=== PATIENT | female | born 1990 | race Caucasian/White ===

== ENCOUNTER → 2020-06-08 | Outpatient (CLI) | payer BC ==
[~2020-06-08] MED LIST: CEPHALEXIN500 M1 PO; NORCO 325 MG-7.1 TAB PO; PROZAC 20MG20 MG PO; SYNTHROID0.05 MG/TA PO
== END ==
LOC: ZCOL.LAB 16:52
DX: Z20.828 Contact with and (suspected) exposure to other viral communicable diseases (principal)

== ENCOUNTER → 2021-12-16 | Outpatient (CLI) | payer BC | LOC: DIA.ED 07:55 | DX: O24.419 Gestational diabetes mellitus in pregnancy, unspecified control (principal) | CPT/HCPCS: G0108 ==

== ENCOUNTER → 2022-01-10 | Outpatient (CLI) | payer BC | LOC: DIA.ED 07:06 | DX: O24.419 Gestational diabetes mellitus in pregnancy, unspecified control (principal) | CPT/HCPCS: G0108 ==

== ENCOUNTER 2022-02-22 05:29 | Inpatient (IN) | payer BC ==
[~2022-02-22] VITALS: Ht 152.4 cm; Wt 58.2 kg
[2022-02-22] VITALS (27 sets, daily range): BP systolic 107–157; BP diastolic 55–85; PULSE 89–129; TEMP 98.4–99.1
[2022-02-22 06:37] LABS: BASO % 0.3 % (0.0-2.0); EOS % 0.3 % (0.0-4.0); GRAN # 5.8 K/mm3 (1.4-6.5); GRAN % 63.8 % (42.2-75.2); HEMATOCRIT 38.6 % (37.0-47.0); HEMOGLOBIN 13.4 g/dl (12.5-16.0); LYMPH # 2.3 K/mm3 (1.2-3.4); LYMPH % 25.1 % (20.0-51.0); MEAN CELL VOLUME 90 fl (80.0-100.0); MEAN CORPUSCULAR HEMOGLOBIN 31 pg (27-31); MEAN CORPUSCULAR HGB CONC 35 g/dl (33.0-37.0); MEAN PLATELET VOLUME 11.5 fl (7.4-10.4); MONO # 0.9 K/mm3 (0.1-0.6); MONO % 9.4 % (1.7-9.3); PLATELET COUNT 139 K/mm3 (130-400); RED BLOOD COUNT 4.31 M/mm3 (4.10-5.30); REDCELL DISTRIBUTION WIDTH-CV 13.4 % (11.5-14.5)
--- NOTE | 2022-02-22 06:43 | NUR ---
0643-BETH Quintero to patient room for requested epidural. Megan sat up on side of bed for placement. Procedure reviewed with patient by PAPER BUNDLER. 0649-Epidural dosed by BETH Quintero patient tolerated procedure well. Repositioned LL, safety reviewed. 0740-Damon to DD, Clear yellow urine return. Katie care provided. SVE 9-/100/-1. Dr. Leung to room to see patient. No new orders. Repositioned RL with PB.
--- NOTE | 2022-02-22 08:12 | NUR ---
0812-Dr. Leung on unit. Reviews strip. Orders to labor down at this time and call with questions or concerns.
--- NOTE | 2022-02-22 10:30 | NUR ---
1030-SVE by Dr. Leung, complete +2 station. Orders to set up for delivery. 1038-Patient begins pushing with doctor at bedside. Moves vertex well. 1046-Spontaneous delivery of head attended by Dr. Leung immediately followed by body. Viable male infant cord clamped x2 by MD and cut by father of baby. Infant to mothers abdomen. Care of assumed by ROCIO Holbrook Apgars 8//9. 1050-Spontaneous delivery of intact placenta by MD. Fundal massage firm. Lochia WNL. EBL 200ml. Pitocin bolus per protocol and MD orders. Repair of 2nd degree perineal lac by MD, tram care provided. Updated on plan of care and safety.
[2022-02-23 00:30] VITALS: BP 109/59; PULSE 88; TEMP 97.8
--- NOTE | 2022-02-23 09:11 | NUR ---
Initial visit; Parents thanked for offering congratulations and God's blessings for the of their son and for commenting on the perfect name they chose for him. thanked family for choosing [facility].
[2022-02-23] MEDS ORDERED: IBU800 M1 PO (09:15)
[2022-02-23 09:25] VITALS: BP 105/58; PULSE 93; TEMP 98
[2022-02-23 19:00] VITALS: BP 119/71; PULSE 94; TEMP 97.7
[2022-02-24 09:29] VITALS: BP 108/65; PULSE 90; TEMP 98.1
== END 2022-02-24 11:45 | disposition home or self-care (01) | DRG 807 ==
LOC: LDRO 05:29 → LDR 06:00 → OB 06:00
PROVIDERS: ADMIT Obstetrics & Gynecology
PROC: 10E0XZZ Delivery of Products of Conception, External Approach (ICD-10-PCS; principal; 2022-02-22)
PROC: 0KQM0ZZ Repair Perineum Muscle, Open Approach (ICD-10-PCS; 2022-02-22)
DX: O24.420 Gestational diabetes mellitus in childbirth, diet controlled (principal); Z37.0 Single live birth; O99.284 Endocrine, nutritional and metabolic diseases complicating childbirth; E03.9 Hypothyroidism, unspecified; O70.1 Second degree perineal laceration during delivery; Z3A.38 38 weeks gestation of pregnancy; Z86.16 Personal history of COVID-19
CPT/HCPCS: J2590; J7120

== ENCOUNTER → 2022-03-15 | Outpatient (CLI) | payer BC ==
[~2022-03-15] MED LIST changes: +IBU800 M1 PO
--- NOTE | 2022-03-15 15:26 | NUR ---
Pt, Evette Hudson, presents to walk-in clinic with 3+ week old baby boy, Jason Hudson, with c/o significant nipple pain. Also of note Jason has a severe diaper rash. Jason was born on [birth year] and weighed 6#11.2oz (3040 gms). Pt states Jason was seen by Dr. Mckeon on 03/11/22 and weighed 7.16# (7#2.4oz). Today Jason weighs 7# 7.5oz. Pt has been using diaper rash ointment at every diaper change but does not see improvement. The rash is bright red and he has skin breakdown on both sides of his "butt crack". Pt is advised to get OTC antifungal cream such as lotrimin or monistat and use 3-4 times daily. Continue diaper rash ointment at other changes. LC notes pt's nipples do not have breakdown but are also bright pink. Pt's description of pain is consistent with a yeast/thrush infection. Pt also has an area on lateral aspect of the right breast that is very tender, warm and gets more sore when the breast is awad of milk. There is not really redness or streaking but the area is about the size of the pt's hand. Pt denies fever or malaise. Report of the nipple and breast pain reported to Dr. Arce's nurse, Kenisha. A prescription of Mcbride's Nipple Cream will be sent to a pharmacy and an appointment for breast evaluation is scheduled for tomorrow morning. coaches pt on off-center latch to get a full latch and pt states on the left side it is more comfortable. On the right breast there is a spot of soreness that lines up with the tongue so she is advised on football hold to change where the tongue grasps the breast. This helps but is not painfree. After nursing Jason had a gain of 38 gms, less than expected but he had a "snack" about an hour prior to coming into clinic, and his weight gain is WNL. Handouts provided with re: home care management of nipple yeast/thrush. Advised on leaving the bra open as possible at home and allow air exposure to Jason's bottom a few times a day. POC: Treatment for yeast/thrush as above, appt. as scheduled. F/U: As needed by phone or clinic with this LC, as scheduled with health care providers. Questions invited and answered.
== END ==
LOC: LAC 13:58
DX: Z39.1 Encounter for care and examination of lactating mother (principal)

== ENCOUNTER 2022-03-19 08:12 | Emergency (ER) | payer BC ==
[~2022-03-19] VITALS: Ht 152.4 cm; Wt 49.5 kg
[2022-03-19 08:38] VITALS: TEMP 98.3
[2022-03-19 09:29] VITALS: BP 121/71; PULSE 80
== END 2022-03-19 09:30 | disposition home or self-care (01) ==
LOC: COL.ER 08:12
DX: N64.4 Mastodynia (principal); N64.59 Other signs and symptoms in breast

== ENCOUNTER → 2022-04-11 | Outpatient (CLI) | payer BC ==
--- NOTE | 2022-04-11 15:06 | NUR ---
PT, Evette Hudson, presents for follow up and evaluation of sore nipples. She was last seen on 03/15/22 for sore nipples and has undergone therapy for mastitis and nipple thrush. She has been evaluated and treated by [facility]. Pt states despite treatment she still has burning and pain to her nipples and areola. They still appear pink despite treatments of fluconazole, Mcbride's nipple cream, vinegar rinses, leaving open to air, warm compresses before and after feeding/pumping and breast shells. Two blebs are noted on the right side and three on the left. Today Evette has a 21mm breast shield to be evaluated with, after pumping a few minutes it appears she may benefit from going to the next smaller size. Pt will order these. Pt willing to try Silverettes for nipple pain, and switching to nystatin nipple cream rather than Mcbride's. She will alternate the Nystatin with the vinegar rinses. She will try to soften the blebs with epsom salt soaks and scraping the covering with a sterile needle or insterment. Evette has an appt at [facility] following this visit. She states she will report to this re: plan of care and status update with pain after a few more days.
== END ==
LOC: LAC 14:22
DX: Z39.1 Encounter for care and examination of lactating mother (principal)